=== PATIENT | female | born 1980 | race Caucasian/White ===

== ENCOUNTER 2017-06-28 18:34 | Inpatient (IN) | payer MEDICAID ==
--- NOTE | 2017-06-28 19:48 | ED Physician Chart ---
ED Chief Complaint/HPI - Patient Information Date Seen:: 06/28/17 Time Seen:: 19:48 Chief Complaint:: Right gluteal abscess History of Present Illness:: 37 yo female presented with right gluteal abscess for 10 days. She had the abscess I&D done in an outside hospital 6 days ago. Received one dose of IV antibiotics in the ER. She was prescribed with oral antibiotics but the patient did not have money to buy antibiotics. As a result, her abscess had gradually grown larger with more purulent drainage and significant pain. She also felt fever and chills. Vitals:: Vital Signs - 8 hr 06/28/17 19:01 Temp 96.5 F HR 70 RR 18 BP 109/69 O2 Sat % 97 ED Review of Systems - Review of Systems General/Constitutional: Fever, Chills Skin: Skin lesions Head: No headache Eyes: No loss of vision ENT: No earache Neck: No neck pain Cardio Vascular: No chest pain Pulmonary: No SOB GI: No nausea, No vomiting Musculoskeletal: No bone or joint pain Psychiatric: No prior psych history ED Past Medical History - Past Medical History Past Medical History: No significant medical hx Social History: Non Smoker, No Alcohol, No Drug Use Surgical History: other (IUD) Family Medical History - Family Member Mother History Unknown: Yes ED Physical Exam - Physical Examination General/Constitutional: Awake, Alert Head: Atraumatic Eyes: PERRL, EOMI ENMT: Nasal exam nl Neck: No nuchal rigidity Respiratory: Clear to Auscultation, No Wheeze/Rhonchi/Rales Cardio Vascular: RRR, No murmur, gallop, rubs, NL S1 S2 GI: No tenderness/rebounding/guarding Other comments:: Right gluteal large open wound Extremities: normal strength in all extremities Neuro/Psych: No focal deficits ED Assessment - Assessment General Assessment: Right gluteal abscess and cellulitis Critical Care Time: 50 min Excludes all billable procedures: Yes This condition life threatening/high prob of deterioration: No Assessment/Comments:: Wound culture, CBC, CMP, PT/PTT I&D Blood culture Vancomycin Zosyn - Procedures Procedures:: Incision & drainage: right gluteal wound prepared with normal saline, hydrogen peroxide, and betadine. Local anesthesia was achieved by 1% lidocaine. A 1cm incision was made medial to the previous drainage site and copious amount of pus came out. Hydrogen peroxide and saline were used to wash the wound. A ribbon iodoform gauze was packed within the wound, covered by multiple 4x4 gauzes. Informed Consent: Procedure/risk/benefits explained by MD: Yes ED Septic Shock - . Is Septic Shock (SBP<90, OR Lactate>4 mmol\L) present?: No - <6hrs of presentation: Vital Signs: Vital Signs - 8 hr 06/28/17 19:01 Temp 96.5 F HR 70 RR 18 BP 109/69 O2 Sat % 97 ED Reassessment (Disposition) - Reassessment Reassessment Condition:: Improved - Patient Disposition Discharge/Transfer:: Acute Care w/in this hosp Admitting Medical Physician:: Josue Ramos ED Discharge Plan - Patient Disposition Admit/Discharge/Transfer: Acute Care w/in this hosp Condition at Disposition: Stable
[2017-06-28 20:43] LABS: % BASOPHILS 0.3 % (0.0-2.0); % EOSINOPHILS 1.5 % (0.0-5.0); % LYMPHOCYTES 18.9 % (20.0-50.0); % MONOCYTES 7.9 % (2.0-10.0); % NEUTROPHILS 71.4 % (40.0-80.0); EOSINOPHILE ABSOLUTE 0.2 Th/cmm (0.1-0.4); HEMATOCRIT 39.7 % (41.0-60); HEMOGLOBIN 13.1 gm/dL (12-16); LYMPHOCYTE ABSOLUTE 2.2 Th/cmm (1.5-3.0); MEAN CORPUSCULAR HEMOGLOBIN 28.3 pg (27.0-31.0); MEAN CORPUSCULAR HGB CONC 32.9 pg (28.0-36.0); MEAN PLATELET VOLUME 9.4 fl; MONOCYTE ABSOLUTE 0.9 Th/cmm (0.3-1.0); NEUTROPHILE ABSOLUTE 8.6 Th/cmm (1.8-8.0); PLATELET COUNT 332 Th/cmm (150-400); RED BLOOD COUNT 4.62 Mil/cmm (3.80-5.10); RED CELL DISTRIBUTION WIDTH 12.8 % (11.5-20.0); WHITE BLOOD COUNT 11.9 Th/cmm (4.8-10.8)
[2017-06-28 20:59] LABS: INR 1.08 (0.5-1.4); PROTHROMBIN TIME (TEST) 11.2 SECONDS (9.5-11.5)
[2017-06-28 21:01] LABS: ALBUMIN 3.6 gm/dL (3.7-5.3); ALKALINE PHOSPHATASE 130 U/L (34-104); ANION GAP 7.8 (7.0-16.0); BILIRUBIN,TOTAL 0.1 mg/dL (0.3-1.0); BUN - UREA NITROGEN 12 mg/dL (7-25); CALCIUM SERUM 8.6 mg/dL (8.6-10.3); CARBON DIOXIDE 28.9 mEq/L (21.0-31.0); CHLORIDE 105 mEq/L (98-107); CREATININE - SERUM 0.8 mg/dL (0.6-1.2); GFR AFRICAN-AMERICAN > 60.0 ml/min (>90); GFR NON AFRICAN-AMERICAN > 60.0 ml/min; GLUCOSE 88 mg/dL (70-105); POTASSIUM SERUM 3.7 mEq/L (3.5-5.1); SGOT 25 U/L (13-39); SGPT/ALT 23 U/L (7-52); SODIUM SERUM 138 mEq/L (136-145); TOTAL PROTEIN,SERUM 7.2 gm/dL (6.0-8.3)
[2017-06-28] MEDS ORDERED: Morphine Sulfate 2 mg/mL 1mL Syr IV STA (21:19)
[2017-06-28] MEDS ORDERED: Morphine Sulfate 2 mg/mL 1mL Syr ONE (21:29)
[2017-06-28] MEDS ORDERED: Piperacillin Sodium/Tazobact 3.375 gm Vial IV ONE (21:55)
[2017-06-29] MEDS: Morphine Sulfate 2 mg/mL 1mL Syr IV PRN ×4 (02:26→19:50)
[2017-06-29 04:51] VITALS: BP 114/58
--- NOTE | 2017-06-29 08:43 | Consultation ---
Consult Note - Consult Note Consult Note: PHYSICIAN Consultation Note: Date of Admission: 06/28/17 Purpose of Consultation: Chief Complaint: History of Present Illness: Patient RODRIGO BOWSER [facility] with GLUTEAL ABSCESS. Past Medical History: Allergies Allergy/AdvReac Type Severity Reaction Status Date / Time sulfamethoxazole Allergy Verified 06/28/17 20:02 [From Bactrim] trimethoprim [From Bactrim] Allergy Verified 06/28/17 20:02 Vital Signs Temp 97.4 F 06/29/17 07:47 Pulse 74 06/29/17 07:47 Resp 17 06/29/17 07:47 BP 101/55 06/29/17 07:47 Pulse Ox 99 06/29/17 07:47 Intake & Output 06/28/17 06/29/17 06/29/17 18:59 06:59 18:59 Intake Total 400 Balance 400 Weight (lbs) 58.967 kg Intake: Intake, IV Amount 400 Piperacillin Sodium/ 50 Tazobact 3.375 gm In Sodium Chloride 0.9% 50 ml @ 100 mls/hr IV X1 ONE Rx#:[id number] Piperacillin Sodium/ 100 Tazobact 4.5 gm In Sodium Chloride 0.9% 100 ml @ 100 mls/hr IV Q8HR [facility] Rx #:[id number] Current Medications Generic Name Dose Route Start Last Admin Trade Name Freq PRN Reason Stop Dose Admin Piperacillin Sod/Tazobactam 100 mls @ 100 mls/hr 06/29/17 05:00 06/29/17 06: 51 Sod 4.5 gm/ Sodium Chloride IV 08/28/17 04:59 Infused Q8HR [facility] Infusion Ibuprofen 300 mg 06/29/17 00:08 06/29/17 08:09 Advil PO 08/28/17 00:07 300 mg TID PRN Administration Pain (Mild) Influenza Virus Vaccine 0.5 ml 07/01/17 09:00 Fluarix IM 07/01/17 09:01 .ONCE ONE Miscellaneous 1 ea 06/29/17 00:08 Vancomycin Iv Per Pharmacy 08/28/17 00:07 PRN PRN PROTOCOL Morphine Sulfate 2 mg 06/29/17 00:08 06/29/17 06:56 Morphine IV 08/28/17 00:07 2 mg Q4HR PRN Administration Pain (Moderate) Ondansetron HCl 4 mg 06/29/17 00:08 Zofran IV 08/28/17 00:07 Q6HR PRN Nausea Review of Systems: A 12 point ROS was reviewed with the pertinent positive and negatives noted in the HPI. Social History Smoking Status Unknown if ever smoked Family Medical History Family Medical History Start: 06/29/17 00: 08 Freq: ONCE Status: Active Document 06/29/17 02:53 ELVI (Rec: 06/29/17 02:54 ELVI WOW- [id number]) Family Medical History Mother History Unknown Yes Physical Exam: General: HEENT: Neck: Cardio: Respiratory: Abdominal: Genital/Urinary: Extremities: Neurological: Assessment: Plan: Татьяна, Lester Black [id number]
--- NOTE | 2017-06-29 08:51 | History & Physical ---
ADMIT DATE: 06/29/2017 REFERRING PHYSICIAN: Dr. Ramos. REASON FOR CONSULTATION: Abscess, right buttock. Thank you for referring this patient to me. HISTORY OF PRESENT ILLNESS: This is a 37-year-old female 4, who claims that 8 days ago, she started developing an abscess in the right buttock for which she went to the [facility]. I and D was done over there. She was given prescription for antibiotics, but did not have the money to buy the medication. The abscess apparently started getting worse and she came to the Emergency Room last night where I and D was done and iodoform gauze placed in 2 areas. PAST MEDICAL HISTORY: Unremarkable for diabetes or hypertension. She is obese with a weight now at 138 pounds where ideal would be 95 at a height of 4 feet 9 inches. LABORATORY STUDIES: The WBC was 11,900. The blood sugar on admission was 88. PHYSICAL EXAMINATION: The patient is obese. There are 2 open wounds in the right buttocks with iodoform gauze packing. Cellulitis extends approximately 10 cm across. PLAN: We will do I and D of the abscess. In the meantime, ultrasound study will be done to determine any deeper abscess that might need deeper drainage. JOB# [id number]
--- NOTE | 2017-06-29 12:21 | Diagnostic Imaging Report ---
Ultrasound examination of the right buttock area. HISTORY: Abscess Findings: Real-time ultrasound exam of soft tissues of the right buttock was performed multiple planes the study demonstrates no evidence of solid cystic lesions. There is evidence for edema subcutaneous tissue ,mild inflammatory changes cannot be excluded. IMPRESSION: no evidence for abscess formation, question of subcutaneous inflammatory changes. Cellulitis cannot be excluded
[2017-06-29] MEDS: D5-0.45NS 1,000 ML IV SCH (14:09)
--- NOTE | 2017-06-29 14:50 | Consultation ---
DATE OF CONSULTATION: 06/30/2017 SURGICAL CONSULTATION REFERRING PHYSICIAN: Dr. Ramos. REASON FOR CONSULTATION: Abscess, right buttock. Thank you for referring this patient to me. HISTORY OF PRESENT ILLNESS: A 37-year-old female 4 who claimed that 8 days ago, she was bitten on the right buttocks. Apparently, they found two spiders at home. She went to [facility]. I and D was done over there. She claimed that it continued to get worse. She was given a prescription for antibiotics, but could not buy the medication. She came in last night, I and D was done in the Emergency Room and packing with iodoform gauze. Physical examination now shows buttocks abscess in two separate area of wound, packed by ER with iodoform gauze. A question of how deep the abscess is and extent, will be resolved as I have ordered ultrasound study. The patient will need further incision and drainage. The patient has no diabetes, although the sister has. Her weight is at least 40 pounds overweight for height of 4 feet and 9 inches. PLAN: We will take to surgery under sedation and explore the abscess cavity more hoping to unroof as much abscess and into connection with possible. JOB# [id number]
[2017-06-29] MEDS ORDERED: fentaNYL Citrate 100 mcg/2mL Vial ONE (15:22)
--- NOTE | 2017-06-29 23:42 | Consultation ---
DATE OF CONSULTATION: 06/28/2017 HISTORY OF PRESENT ILLNESS: This 37-year-old female was brought to the Emergency Room with complaint of one week of abscess in the right gluteal area. The patient underwent I and D, admitted to the hospital. Infectious consultation was called. Wound culture was sent and the patient started on vancomycin and Zosyn. PAST MEDICAL HISTORY: No previous cellulitis. FAMILY HISTORY: Negative. PERSONAL HISTORY: Nonsmoker. REVIEW OF SYSTEMS: A 14-point review of system negative except above. PAST SURGICAL HISTORY: IUD placement. PHYSICAL EXAMINATION: GENERAL: The patient is alert, awake, oriented x 3. VITAL SIGNS: Temperature is 96.5, pulse 70, respiration is 18, blood pressure 109/69. HEENT: Mild pallor, no icterus or plaque. NECK: Supple. LUNGS: Breath sounds bilateral vesicular. ABDOMEN: Soft, bowel sounds present right gluteal wound present with packing. See pictures. LYMPH NODE: No cervical lymph nodes. DIAGNOSES: Right gluteal abscess, status post I and D. History of intrauterine device. PLAN: The patient was started on Zosyn and vancomycin, wait for the culture, local wound care. Surgical evaluation. Rest of the care as ordered in CPOE. JOB# [id number]
[2017-06-30] MEDS: D5-0.45NS 1,000 ML IV SCH (03:09)
[2017-06-30] MEDS: Morphine Sulfate 2 mg/mL 1mL Syr IV PRN ×5 (03:45→23:29)
[2017-06-30 09:44] LABS: % BASOPHILS 0.3 % (0.0-2.0); % EOSINOPHILS 3.9 % (0.0-5.0); % LYMPHOCYTES 29.9 % (20.0-50.0); % MONOCYTES 10.3 % (2.0-10.0); % NEUTROPHILS 55.6 % (40.0-80.0); EOSINOPHILE ABSOLUTE 0.2 Th/cmm (0.1-0.4); HEMATOCRIT 37.5 % (41.0-60); HEMOGLOBIN 12.5 gm/dL (12-16); LYMPHOCYTE ABSOLUTE 1.8 Th/cmm (1.5-3.0); MEAN CORPUSCULAR HEMOGLOBIN 28.4 pg (27.0-31.0); MEAN CORPUSCULAR HGB CONC 33.4 pg (28.0-36.0); MEAN PLATELET VOLUME 9.2 fl; MONOCYTE ABSOLUTE 0.6 Th/cmm (0.3-1.0); NEUTROPHILE ABSOLUTE 3.4 Th/cmm (1.8-8.0); PLATELET COUNT 327 Th/cmm (150-400); RED BLOOD COUNT 4.41 Mil/cmm (3.80-5.10); RED CELL DISTRIBUTION WIDTH 12.5 % (11.5-20.0)
[2017-06-30 09:55] LABS: ANION GAP 7.7 (7.0-16.0); BUN - UREA NITROGEN 14 mg/dL (7-25); CALCIUM SERUM 8.6 mg/dL (8.6-10.3); CHLORIDE 104 mEq/L (98-107); CREATININE - SERUM 0.8 mg/dL (0.6-1.2); GFR AFRICAN-AMERICAN > 60.0 ml/min (>90); GFR NON AFRICAN-AMERICAN > 60.0 ml/min; GLUCOSE 112 mg/dL (70-105); POTASSIUM SERUM 3.7 mEq/L (3.5-5.1); SODIUM SERUM 134 mEq/L (136-145)
--- NOTE | 2017-06-30 17:56 | Operative Report ---
DATE OF SURGERY: 06/30/2017 PREOPERATIVE DIAGNOSES: Abscess, right buttocks possible insect bite. POSTOPERATIVE DIAGNOSES: Abscess, right buttocks possible insect bite. OPERATION DONE: 1. Debridement of right buttock abscess. 2. Incision and drainage. SURGEON: Sofia Batista M.D. ANESTHESIA: MAC. ANESTHESIOLOGIST: Dr. Null. OPERATIVE FINDINGS: Tunneling of the abscess in the right buttocks. Ultrasound prior to surgery did not show any deeper abscess that was drainable. PROCEDURE: The patient was given IV sedation. The right buttocks was prepped with Betadine and draped. A 1% lidocaine was used to infiltrate around the area of the abscess. Scissors were used to excise necrotic tissues. There was tunneling between the upper and the lower abscess openings and this was connected with a Mcfall drain tied together to prevent drainage from not being able to come out of the two areas. The wound was then packed with iodoform gauze. The patient tolerated the procedure well. [facility]# [id number]
--- NOTE | 2017-06-30 21:27 | General Progress Note ---
Subjective - Review of Systems Service Date: 06/30/17 Subjective: patient seen and examined s/p I&D Objective - Results Result Diagrams: 06/30/17 09:20 06/30/17 09:20 Recent Labs: Laboratory Last Values WBC 6.0 Th/cmm (4.8-10.8) D 06/30/17 09:20 RBC 4.41 Mil/cmm (3.80-5.10) 06/30/17 09:20 Hgb 12.5 gm/dL (12-16) 06/30/17 09:20 Hct 37.5 % (41.0-60) L 06/30/17 09:20 MCV 85.0 fl (81-100) 06/30/17 09:20 MCH 28.4 pg (27.0-31.0) 06/30/17 09:20 MCHC Differential 33.4 pg (28.0-36.0) 06/30/17 09:20 RDW 12.5 % (11.5-20.0) 06/30/17 09:20 Plt Count 327 Th/cmm (150-400) 06/30/17 09:20 MPV 9.2 fl 06/30/17 09:20 Neutrophils % 55.6 % (40.0-80.0) 06/30/17 09:20 Lymphocytes % 29.9 % (20.0-50.0) 06/30/17 09:20 Monocytes % 10.3 % (2.0-10.0) H 06/30/17 09:20 Eosinophils % 3.9 % (0.0-5.0) 06/30/17 09:20 Basophils % 0.3 % (0.0-2.0) 06/30/17 09:20 PT 11.2 SECONDS (9.5-11.5) 06/28/17 20:34 INR 1.08 (0.5-1.4) 06/28/17 20:34 PTT (Actin FS) 26.2 SECONDS (26.0-38.0) 06/28/17 20:34 Sodium 134 mEq/L (136-145) L 06/30/17 09:20 Potassium 3.7 mEq/L (3.5-5.1) 06/30/17 09:20 Chloride 104 mEq/L (98-107) 06/30/17 09:20 Carbon Dioxide 26.0 mEq/L (21.0-31.0) 06/30/17 09:20 Anion Gap 7.7 (7.0-16.0) 06/30/17 09:20 BUN 14 mg/dL (7-25) 06/30/17 09:20 Creatinine 0.8 mg/dL (0.6-1.2) 06/30/17 09:20 Est GFR ( Amer) > 60.0 ml/min (>90) 06/30/17 09:20 Est GFR (Non-Af Amer) > 60.0 ml/min 06/30/17 09:20 BUN/Creatinine Ratio 17.5 06/30/17 09:20 Glucose 112 mg/dL (70-105) H 06/30/17 09:20 POC Glucose 102 MG/DL (70 - 105) 06/29/17 13:19 Calcium 8.6 mg/dL (8.6-10.3) 06/30/17 09:20 Total Bilirubin 0.1 mg/dL (0.3-1.0) L 06/28/17 20:34 AST 25 U/L (13-39) 06/28/17 20:34 ALT 23 U/L (7-52) 06/28/17 20:34 Alkaline Phosphatase 130 U/L (34-104) H 06/28/17 20:34 Total Protein 7.2 gm/dL (6.0-8.3) 06/28/17 20:34 Albumin 3.6 gm/dL (3.7-5.3) L 06/28/17 20:34 Globulin 3.6 gm/dL 06/28/17 20:34 Albumin/Globulin Ratio 1.0 (1.0-1.8) 06/28/17 20:34 Vancomycin Trough 12.7 ug/mL (10-20) 06/30/17 09:20 Blood Type O POSITIVE 06/29/17 14:40 Antibody Screen NEGATIVE 06/29/17 14:40 - Physical Exam Vitals and I&O: Vital Signs Temp 98.2 F 06/30/17 20:00 Pulse 76 06/30/17 20:00 Resp 18 06/30/17 20:00 BP 99/51 06/30/17 20:00 Pulse Ox 99 06/30/17 20:00 Intake & Output 06/30/17 06/30/17 07/01/17 06:59 18:59 06:59 Intake Total 1634 250 876 Balance 1634 250 876 Weight (lbs) 60.328 kg Intake: Intake, IV Amount 1584 250 876 D5-0.45NS 1,000 ml @ 70 1134 776 mls/hr IV .[id number] [facility] Rx #:[id number] Piperacillin Sodium/ 200 100 Tazobact 4.5 gm In Sodium Chloride 0.9% 100 ml @ 100 mls/hr IV Q8HR [facility] Rx #:[id number] Vancomycin HCl 1 gm In 250 250 Dextrose 5% 250 ml @ 165 mls/hr IV Q12H [facility] Rx#: [id number] Oral 50 Other: # Voids 3 # Bowel Movements 0 Active Medications: Current Medications Piperacillin Sod/Tazobactam (Sod 4.5 gm/ Sodium Chloride) 100 mls @ 100 mls/hr IV Q8HR [facility] Stop: 08/28/17 04:59 Last Admin: 06/30/17 20:41 Dose: 100 mls/hr Vancomycin HCl 1 gm/ Dextrose 250 mls @ 165 mls/hr IV Q12H [facility] Stop: 08/28/17 09:59 Last Infusion: 06/30/17 12:24 Dose: Infused Dextrose/Sodium Chloride (D5-0.45ns) 1,000 mls @ 70 mls/hr IV .[id number] [facility] Stop: 08/28/17 13:29 Last Infusion: 06/30/17 19:03 Dose: Infused Ibuprofen (Advil) 300 mg PO TID PRN PRN Reason: Pain (Mild) Stop: 08/28/17 00:07 Last Admin: 06/29/17 08:09 Dose: 300 mg Influenza Virus Vaccine (Fluarix) 0.5 ml IM .ONCE ONE Stop: 07/01/17 09:01 Miscellaneous (Vancomycin Iv Per Pharmacy) 1 ea MC PRN PRN PRN Reason: PROTOCOL Stop: 08/28/17 00:07 Morphine Sulfate (Morphine) 2 mg IV Q4HR PRN PRN Reason: Pain (Moderate) Stop: 08/28/17 00:07 Last Admin: 06/30/17 18:04 Dose: 2 mg Ondansetron HCl (Zofran) 4 mg IV Q6HR PRN PRN Reason: Nausea Stop: 08/28/17 00:07 Neck: Thyromegaly Cardiovascular: Regular rate Lungs: Clear to auscultation - Procedures Procedures: Procedures Procedure Code Date DRAINAGE OF RIGHT BUTTOCK, PERCUTANEOUS APPROACH [id number] 06/28/17 DRAINAGE OF SKIN ABSCESS 12849 06/28/17 Assessment/Plan - Assessment Assessment: Right buttock abscess s/p I/D - Plan Plan: Continue IV antibiotics Daily wound care Plan of care discussed with patient and nursing staff
[2017-07-01] MEDS: Morphine Sulfate 2 mg/mL 1mL Syr IV PRN ×3 (04:50→18:31)
[2017-07-01] MEDS: D5-0.45NS 1,000 ML IV SCH ×2 (05:34→13:20)
[2017-07-01 06:44] LABS: % BASOPHILS 0.2 % (0.0-2.0); % LYMPHOCYTES 29.5 % (20.0-50.0); % MONOCYTES 9.3 % (2.0-10.0); EOSINOPHILE ABSOLUTE 0.3 Th/cmm (0.1-0.4); HEMATOCRIT 35.8 % (41.0-60); HEMOGLOBIN 12.1 gm/dL (12-16); LYMPHOCYTE ABSOLUTE 2.1 Th/cmm (1.5-3.0); MEAN CORPUSCULAR HEMOGLOBIN 28.7 pg (27.0-31.0); MEAN CORPUSCULAR HGB CONC 33.7 pg (28.0-36.0); MEAN PLATELET VOLUME 9.4 fl; MONOCYTE ABSOLUTE 0.7 Th/cmm (0.3-1.0); NEUTROPHILE ABSOLUTE 4.1 Th/cmm (1.8-8.0); PLATELET COUNT 359 Th/cmm (150-400); RED BLOOD COUNT 4.21 Mil/cmm (3.80-5.10); RED CELL DISTRIBUTION WIDTH 12.6 % (11.5-20.0); WHITE BLOOD COUNT 7.2 Th/cmm (4.8-10.8)
[2017-07-01 07:00] LABS: ANION GAP 11.1 (7.0-16.0); BUN - UREA NITROGEN 17 mg/dL (7-25); CALCIUM SERUM 8.4 mg/dL (8.6-10.3); CARBON DIOXIDE 25.5 mEq/L (21.0-31.0); CHLORIDE 102 mEq/L (98-107); CREATININE - SERUM 0.8 mg/dL (0.6-1.2); GFR AFRICAN-AMERICAN > 60.0 ml/min (>90); GFR NON AFRICAN-AMERICAN > 60.0 ml/min; GLUCOSE 101 mg/dL (70-105); POTASSIUM SERUM 3.6 mEq/L (3.5-5.1); SODIUM SERUM 135 mEq/L (136-145)
[2017-07-01] MEDS ORDERED: Influenza Vaccine 0.5 mL Syr IM ONE (09:00)
--- NOTE | 2017-07-01 09:00 | History & Physical ---
ADMIT DATE: 06/28/2017 CHIEF COMPLAINT: Right buttock abscess. HISTORY OF PRESENT ILLNESS: This is a 37-year-old female has been having right buttock abscess for the past several days. She went to [facility], she had an I and D done and was discharged home with oral antibiotics. The patient due to insurance issue unable to get the prescription filled for antibiotic. The patient's symptoms of buttock abscess got worse and came to the Emergency Room again at [facility]. PAST SURGICAL HISTORY: The patient had I and D right buttock abscess. REVIEW OF SYSTEMS: denies any fever. No chills, nausea, vomiting. No abdominal pain. PHYSICAL EXAMINATION: VITAL SIGNS: Temperature 98.0, pulse 67, respirations 18, blood pressure 93/40. GENERAL APPEARANCE: The patient does not seem in acute distress. CARDIOVASCULAR: S1 and S2 audible. LUNGS: Clear. ABDOMEN: Soft. Right buttock area abscess with surrounding cellulitis noted. ASSESSMENT: Right buttock abscess with cellulitis. PLAN: The patient is status post I and D. Continue vanco and Zosyn. Follow up on the wound culture. ID and Surgery on board. Plan of care discussed with nursing staff. JOB# [id number] KEVON
--- NOTE | 2017-07-01 17:22 | General Progress Note ---
Subjective - Review of Systems Service Date: 07/01/17 Subjective: patient seen and examined doing better afebrile Objective - Results Result Diagrams: 07/01/17 05:45 07/01/17 05:45 Recent Labs: Laboratory Last Values WBC 7.2 Th/cmm (4.8-10.8) 07/01/17 05:45 RBC 4.21 Mil/cmm (3.80-5.10) 07/01/17 05:45 Hgb 12.1 gm/dL (12-16) 07/01/17 05:45 Hct 35.8 % (41.0-60) L 07/01/17 05:45 MCV 85.0 fl (81-100) 07/01/17 05:45 MCH 28.7 pg (27.0-31.0) 07/01/17 05:45 MCHC Differential 33.7 pg (28.0-36.0) 07/01/17 05:45 RDW 12.6 % (11.5-20.0) 07/01/17 05:45 Plt Count 359 Th/cmm (150-400) 07/01/17 05:45 MPV 9.4 fl 07/01/17 05:45 Neutrophils % 57.0 % (40.0-80.0) 07/01/17 05:45 Lymphocytes % 29.5 % (20.0-50.0) 07/01/17 05:45 Monocytes % 9.3 % (2.0-10.0) 07/01/17 05:45 Eosinophils % 4.0 % (0.0-5.0) 07/01/17 05:45 Basophils % 0.2 % (0.0-2.0) 07/01/17 05:45 PT 11.2 SECONDS (9.5-11.5) 06/28/17 20:34 INR 1.08 (0.5-1.4) 06/28/17 20:34 PTT (Actin FS) 26.2 SECONDS (26.0-38.0) 06/28/17 20:34 Sodium 135 mEq/L (136-145) L 07/01/17 05:45 Potassium 3.6 mEq/L (3.5-5.1) 07/01/17 05:45 Chloride 102 mEq/L (98-107) 07/01/17 05:45 Carbon Dioxide 25.5 mEq/L (21.0-31.0) 07/01/17 05:45 Anion Gap 11.1 (7.0-16.0) 07/01/17 05:45 BUN 17 mg/dL (7-25) 07/01/17 05:45 Creatinine 0.8 mg/dL (0.6-1.2) 07/01/17 05:45 Est GFR ( Amer) > 60.0 ml/min (>90) 07/01/17 05:45 Est GFR (Non-Af Amer) > 60.0 ml/min 07/01/17 05:45 BUN/Creatinine Ratio 21.3 07/01/17 05:45 Glucose 101 mg/dL (70-105) 07/01/17 05:45 POC Glucose 102 MG/DL (70 - 105) 06/29/17 13:19 Calcium 8.4 mg/dL (8.6-10.3) L 07/01/17 05:45 Total Bilirubin 0.1 mg/dL (0.3-1.0) L 06/28/17 20:34 AST 25 U/L (13-39) 06/28/17 20:34 ALT 23 U/L (7-52) 06/28/17 20:34 Alkaline Phosphatase 130 U/L (34-104) H 06/28/17 20:34 Total Protein 7.2 gm/dL (6.0-8.3) 06/28/17 20:34 Albumin 3.6 gm/dL (3.7-5.3) L 06/28/17 20:34 Globulin 3.6 gm/dL 06/28/17 20:34 Albumin/Globulin Ratio 1.0 (1.0-1.8) 06/28/17 20:34 Vancomycin Trough 12.7 ug/mL (10-20) 06/30/17 09:20 Blood Type O POSITIVE 06/29/17 14:40 Antibody Screen NEGATIVE 06/29/17 14:40 - Physical Exam Vitals and I&O: Vital Signs Temp 98.2 F 07/01/17 12:00 Pulse 59 07/01/17 12:00 Resp 18 07/01/17 12:00 BP 104/50 07/01/17 12:00 Pulse Ox 100 07/01/17 12:00 Intake & Output 06/30/17 07/01/17 07/01/17 18:59 06:59 18:59 Intake Total 250 1326 1023.667 Balance 250 1326 1023.667 Weight (lbs) 60.328 kg Intake: Intake, IV Amount 250 1326 543.667 D5-0.45NS 1,000 ml @ 70 776 543.667 mls/hr IV .[id number] [facility] Rx #:[id number] Piperacillin Sodium/ 300 Tazobact 4.5 gm In Sodium Chloride 0.9% 100 ml @ 100 mls/hr IV Q8HR [facility] Rx #:[id number] Vancomycin HCl 1 gm In 250 250 Dextrose 5% 250 ml @ 165 mls/hr IV Q12H [facility] Rx#: [id number] Oral 480 Active Medications: Current Medications Piperacillin Sod/Tazobactam (Sod 4.5 gm/ Sodium Chloride) 100 mls @ 100 mls/hr IV Q8HR [facility] Stop: 08/28/17 04:59 Last Admin: 07/01/17 13:19 Dose: 100 mls/hr Vancomycin HCl 1 gm/ Dextrose 250 mls @ 165 mls/hr IV Q12H [facility] Stop: 08/28/17 09:59 Last Admin: 07/01/17 09:44 Dose: 165 mls/hr Dextrose/Sodium Chloride (D5-0.45ns) 1,000 mls @ 70 mls/hr IV .[id number] [facility] Stop: 08/28/17 13:29 Last Admin: 07/01/17 13:20 Dose: 70 mls/hr Ibuprofen (Advil) 300 mg PO TID PRN PRN Reason: Pain (Mild) Stop: 08/28/17 00:07 Last Admin: 06/29/17 08:09 Dose: 300 mg Miscellaneous (Vancomycin Iv Per Pharmacy) 1 ea MC PRN PRN PRN Reason: PROTOCOL Stop: 08/28/17 00:07 Morphine Sulfate (Morphine) 2 mg IV Q4HR PRN PRN Reason: Pain (Moderate) Stop: 08/28/17 00:07 Last Admin: 07/01/17 13:19 Dose: 2 mg Ondansetron HCl (Zofran) 4 mg IV Q6HR PRN PRN Reason: Nausea Stop: 08/28/17 00:07 Cardiovascular: Regular rate Lungs: Clear to auscultation Skin: Other (wound clean surrouding redness much better) - Procedures Procedures: Procedures Procedure Code Date DRAINAGE OF RIGHT BUTTOCK, PERCUTANEOUS APPROACH [id number] 06/28/17 DRAINAGE OF SKIN ABSCESS 22466 06/28/17 Assessment/Plan - Assessment Assessment: Right buttock abscess s/p I/D - Plan Plan: Continue IV antibiotics Daily wound care Case discussed with ID Plan of care discussed with patient and nursing staff
== END 2017-07-01 20:06 | disposition home or self-care (01) | DRG 383 ==
LOC: ER 18:34 → MSI 22:30
PROVIDERS: ADMIT Family Medicine; ATTEND Family Medicine
PROC: 0Y903ZZ Drainage of Right Buttock, Percutaneous Approach (ICD-10-PCS; principal; 2017-06-28)
PROC: 0JB90ZZ Excision of Buttock Subcutaneous Tissue and Fascia, Open Approach (ICD-10-PCS; 2017-06-30)
DX: L02.31 Cutaneous abscess of buttock (principal); E66.9 Obesity, unspecified; L03.317 Cellulitis of buttock; Z88.3 Allergy status to other anti-infective agents; Z88.2 Allergy status to sulfonamides; Z68.28 Body mass index [BMI] 28.0-28.9, adult
CPT/HCPCS: 10060; 36415-UA; 76881-TC-RT; 80048-TC; 80053-TC; 80202-TC; 82948-90; 85025-TC; 85610-TC; 86850-TC; 86900-TC; 86901-TC; 87070-90; 87075-90; 87205-90; 93005; 96375; A4217; J1885; J2270; J2543; J2704; J3010; J3370; J7030; J7040; V2790; Z7502; Z7610